=== PATIENT | female | born 1955 | race Caucasian/White ===

== ENCOUNTER → 2020-07-21 | Outpatient (CLI) | payer MEDICARE, OTHER | END | disposition home or self-care (01) | LOC: LABWHC1 12:33 | PROVIDERS: ATTEND Internal Medicine | DX: Z20.828 Contact with and (suspected) exposure to other viral communicable diseases (principal) | CPT/HCPCS: U0003; C9803 ==

== ENCOUNTER → 2023-10-07 | Outpatient (CLI) | payer MEDICARE ==
--- NOTE | 2023-10-08 06:46 | MR ---
EXAMINATION TYPE: MR knee LT wo con DATE OF EXAM: 10/07/2023 COMPARISON: Outside left knee x-ray September 28, 2023 HISTORY: Left knee pain and swelling x1.5 years TECHNIQUE: Multiplanar, multisequence images of the knee is performed without IV contrast. FINDINGS: MEDIAL MENISCUS: More globular increased signal medial meniscus begins in central body extending into the posterior horn. This does not definitively extend to articular surface LATERAL MENISCUS: Increased signal lateral meniscus seen best on image 19 is more in the central body having predominantly horizontal course with likely some linear extension to the inferior articular s urface on coronal image. CRUCIATE LIGAMENTS: The anterior and posterior cruciate ligaments are intact and unremarkable. COLLATERAL LIGAMENTS: The medial collateral ligament and lateral collateral ligament complex are inta ct and unremarkable. EXTENSOR MECHANISM: Visualized quadriceps and patellar tendons are intact. EFFUSION: Moderate size suprapatellar joint effusion. POPLITEAL CYST: Small to moderate-sized septated popliteal/mcintyre cyst. TRICOMPARTMENT SPACES: Moderate tricompartment joint space loss with mild tricompartment spurring. CARTILAGE: Some Cartilaginous loss medial tibiofemoral compartment. Some chondromalacia patella is pr esent. BONE MARROW SIGNAL: No focal abnormal marrow signal is appreciated. OTHER: No additional significant abnormality is appreciated. IMPRESSION: 1. At least significant intrasubstance tear medial meniscus involving central body extending into pos terior horn. 2. Intrasubstance tear suspected full-thickness tear lateral meniscus centered in the central body. 3. Fairly moderate tricompartment degenerative changes as detailed above. 4. Moderate-sized joint effusion. 5. Small to moderate sized septated popliteal cyst.
== END | disposition home or self-care (01) ==
LOC: RADMRIMAIN 14:41
PROVIDERS: ATTEND Orthopaedic Surgery
DX: M17.12 Unilateral primary osteoarthritis, left knee (principal); M25.462 Effusion, left knee; M71.22 Synovial cyst of popliteal space [Baker], left knee; M23.322 Other meniscus derangements, posterior horn of medial meniscus, left knee; M23.362 Other meniscus derangements, other lateral meniscus, left knee

== ENCOUNTER 2023-11-17 10:21 | Day surgery (SDC) | payer MEDICARE ==
[2023-11-15 15:34] VITALS: BMI 29.7
--- NOTE | 2023-11-16 18:28 | HP ---
HISTORY AND PHYSICAL DATE OF SURGERY: 11/17/2023. HISTORY OF PRESENT ILLNESS: Hermelinda Haney is a 68-year-old patient seen with progressive left knee pain. We discussed options. She elected to proceed with left knee arthroscopy. Consent was obtained. Medical clearance was provided by Dr. Smith. PAST MEDICAL HISTORY: Hypertension, hyperlipidemia. PAST SURGICAL HISTORY: Noncontributory. DAILY MEDICATIONS: 1. Gabapentin. 2. Lisinopril. 3. Metoprolol. 4. Simvastatin. 5. Tylenol. ALLERGIES: None. SOCIAL HISTORY: Smokes cigarettes. PHYSICAL EVALUATION OF LEFT KNEE: Range of motion is -1/2 to 130 degrees. Moderate effusion. Tenderness along the medial and lateral joint lines. Positive medial Haresh's. Positive lateral Haresh's. Ligaments stable. Hip rotation without pain. Distal neurovascular exam is intact. IMAGING STUDIES: Left knee radiographs revealed moderate osteoarthritis. MRI of left knee revealed medial and lateral meniscal tears, popliteal system, moderate osteoarthritis. IMPRESSION: 1. Internal derangement of left knee with medial and lateral meniscal tears. 2. Left knee osteoarthritis. 3. Hypertension. 4. Hyperlipidemia. PLAN: Left knee arthroscopy with partial medial/lateral meniscectomy and debridement. MMODL / IJN: [id number] /
[~2023-11-17 10:21] MED LIST: HYDROmorphone 0.5 MG/0.5 ML SYRINGE IVP PRN; LACTATED RINGERS 1,000 ML IV SCH
[2023-11-17] MEDS: LACTATED RINGERS 1,000 ML IV ONE (10:48)
[2023-11-17] MEDS: DEXAMETHASONE SOD PHOSPHATE 4 MG/ML 1 ML VIAL IV ONE (11:07)
[2023-11-17] MEDS: ONDANSETRON 4 MG/2 ML VIAL IVP ONE (11:07)
[2023-11-17] MEDS ORDERED: PROPOFOL 10 MG/ML 20 ML VIAL IV ONE (11:24)
[2023-11-17] MEDS ORDERED: MIDAZOLAM 2 MG/2 ML VIAL ONE (11:24)
[2023-11-17] MEDS ORDERED: fentaNYL (PF) 50 MCG/ML 2 ML AMP ONE (11:24)
[2023-11-17] MEDS ORDERED: LIDOCAINE 1% INJ 10MG/ML (20 ML MDV) ONE (11:24)
[2023-11-17] MEDS: BUPIVACAINE (PF) 0.25% 30 ML VIAL SQ ONE (11:28)
[2023-11-17] MEDS: ceFAZolin 1 GM in DEXTROSE/WATER 1 50ML.BAG IVPB PRN (11:30)
[2023-11-17] MEDS: SODIUM CHLORIDE 0.9% 50 ML with ceFAZolin 1,000 MG IV ONE (11:30)
--- NOTE | 2023-11-17 12:23 | P.OP ---
Date of Procedure: 11/17/23 Preoperative Diagnosis: Internal derangement left knee Postoperative Diagnosis: 1. Tear medial and lateral meniscus left knee 2. Grade IV chondromalacia medial femoral condyle left knee 3. Reactive synovitis medial, lateral and suprapatellar compartments left knee Procedure(s) Performed: 1. Arthroscopic partial medial and lateral meniscectomy left knee 2. Arthroscopic microfracture medial femoral condyle left knee 3. Arthroscopic partial synovectomy medial, lateral and suprapatellar compartments left knee 4. Arthroscopic chondroplasty medial femoral condyle left knee Anesthesia: REBECCAA, local Surgeon: Rodolfo Tellez Estimated Blood Loss (ml): 7 Pathology: none sent Condition: stable Disposition: PACU Indications for Procedure: 68-year-old patient seen with progressive left knee pain. After treatment options were discussed, she elected to proceed with arthroscopy. Operative Findings: See description of procedure Description of Procedure: Patient was taken to the operative suite. Patient underwent a general anesthetic by the department of anesthesia. Patient was given preoperative antibiotics. The left lower extremity was placed in a well-padded arthroscopic leg del castillo. The left leg was prepped and draped in the normal sterile orthopedic fashion. A lateral parapatellar and suprapatellar incision was made. Trochars were inserted. Arthroscopy was initiated. Suprapatellar pouch revealed diffuse thick reactive synovitis. The patellofemoral joint appeared to articulate congruently. There was grade I chondromalacia of the patellofemoral joint without significant tears. The scope was guided into the medial gutter. No loose bodies or plica were identified. The scope was then guided into the medial compartment. A medial parapatellar incision was made. Trocar inserted followed by probe. There was a complex tear involving the posterior horn and mid bodies of the medial meniscus. There were grade III/IV chondromalacia changes involving the medial femoral condyle with osteochondral flap tears. There was grade II/III chondromalacia of the medial tibial plateau with no tears. There was thick reactive synovitis anteriorly. I performed a partial medial meniscectomy getting down to stable meniscal tissue. I performed a chondroplasty of the medial femoral condyle getting down to stable osteochondral tissue. I performed a partial synovectomy decompressing the reactive synovitis anteriorly. I did note an area of grade IV chondromalacia/exposed bone involving the posterior aspect of the medial femoral condyle. I introduced a microfracture awl and I performed a microfracture to the area of exposed bone penetrating the bone with resultant bleeding at the microfracture site. The residual meniscus was probed and was found to be stable. The residual osteochondral surface was stable. There was good decompression of the synovitis. Scope and probe were then guided into the intercondylar notch. Cruciates were identified, probed and found to be stable. The scope and probe were then guided into lateral compartment. There was a radial tear mid body lateral meniscus. There were grade I chondromalacia changes involving the lateral compartment. There was thick reactive synovitis anteriorly. I performed a partial lateral meniscectomy getting down to stable meniscal tissue. I performed a partial synovectomy decompressing the reactive synovitis. The residual meniscus was stable. There was good decompression of the synovitis. The scope was in guided back into the suprapatellar compartment. I introduced a motorized shaver into the suprapatellar compartment. I debrided some piecemeal fragments of meniscus that I encountered. I performed a partial synovectomy. The shaver was now removed. There was good decompression of the synovitis. I now took 1 more look around the entire knee, no residual debris. Instruments were now removed from the joint. The joint was infiltrated with .25% Marcaine. Steri-Strips were applied to the portal sites. Sterile dressings were applied. The patient was placed into a BROCK hose. No tourniquet was utilized. The patient was awakened, transferred to a bed and taken to recovery stable satisfactory condition.
[2023-11-17 12:52] VITALS: RESP 16; TEMP 96.8
[2023-11-17 13:26] VITALS: BP 119/74; PULSE 84
== END 2023-11-17 13:53 | disposition home or self-care (01) ==
LOC: OR 10:21
PROVIDERS: ATTEND Orthopaedic Surgery
DX: S83.282A Other tear of lateral meniscus, current injury, left knee, initial encounter (principal); S83.242A Other tear of medial meniscus, current injury, left knee, initial encounter; M17.12 Unilateral primary osteoarthritis, left knee; I10 Essential (primary) hypertension; E78.5 Hyperlipidemia, unspecified; F17.210 Nicotine dependence, cigarettes, uncomplicated; Z79.1 Long term (current) use of non-steroidal anti-inflammatories (NSAID); Z79.899 Other long term (current) drug therapy; X58.XXXA Exposure to other specified factors, initial encounter
CPT/HCPCS: 29880; 29879; J2250; J1100; J2405; J0690 ×2; J2001; J3010; J2704; J0665

== ENCOUNTER → 2024-05-18 | Outpatient (CLI) | payer MEDICARE ==
--- NOTE | 2024-05-18 15:16 | CT ---
EXAMINATION TYPE: CT foot RT wo con CT DLP: 208 mGycm, Automated exposure control for dose reduction was used. DATE OF EXAM: 05/18/2024 2:41 PM COMPARISON: None CLINICAL INDICATION: Female, 69 years old with history of M79.671 PAIN RT FOOT S92.334K, S92.324K, S9 2.324K; [facility], f/u fx/not healing TECHNIQUE: Axial images were obtained of the CT foot RT wo con, Additional coronal and sagittal refor matted images and soft tissue and bone window were obtained for review. 3-D reconstruction was create d on a separate workstation. Contrast used: mL of , (None if empty) Oral contrast used: (None if empty) FINDINGS: Fracture lines are seen through the second, third, fourth metatarsals near the base. No def initive intra-articular extension. There is incomplete osseous fusion of these fractures. Multifocal degeneration changes throughout the rest of the joints with mild joint space and osteophyt e formation. Calcaneal plantar spur and calcaneal Achilles enthesophyte formation are present. IMPRESSION: Fractures through the second, third and fourth metatarsal bases. There is incomplete osseous fusion. No intra-articular extension. Mild multifocal old osteoporosis.
== END | disposition home or self-care (01) ==
LOC: RADCTMAIN 14:02
PROVIDERS: ATTEND Podiatrist
DX: S92.334K Nondisplaced fracture of third metatarsal bone, right foot, subsequent encounter for fracture with nonunion (principal); S92.324K Nondisplaced fracture of second metatarsal bone, right foot, subsequent encounter for fracture with nonunion; M79.671 Pain in right foot

== ENCOUNTER → 2024-07-24 | Outpatient (CLI) | payer MEDICARE ==
--- NOTE | 2024-07-28 17:15 | MM ---
Reason for Exam: Screening (asymptomatic). Last mammogram was performed 1 year(s) and 4 month(s) ago. Patient History: Menarche at age 14. First Full-Term at age 22. Left ovary removed at age 28. Right ovary removed at age 28. Hysterectomy at age 28. Postmenopausal. Patient used Estrogen for 10 years. Maternal unspecified (nephew) had breast cancer, age 31. Risk Values: Sabi 5 year model risk: 1.4%. NCI Lifetime model risk: 4.3%. Prior Study Comparison: 04/29/2010 Bilateral Diagnostic Mammogram, [facility]. 06/01/2011 Bilateral Screening Mammogram, [facility]. 07/21/2012 Bilateral Screening Mammogram, [facility]. 01/28/2022 Left Diagnostic Mammogram, [facility]. 03/25/2023 Bilateral Screening Mammogram, [facility]. Tissue Density: The breasts are heterogeneously dense, which may obscure small masses. Findings: Analyzed By CAD. The pattern is symmetrical. Multiple benign punctate and round calcifications are present bilaterally. No suspicious interval change. No suspicious groups of microcalcifications, spiculated or lobular masses, architectural distortion or other secondary signs of malignancy are mammographically apparent. Overall Assessment: Benign, BI-RAD 2 Management: Screening Mammogram of both breasts in 1 year. A negative mammogram report should not preclude additional follow up of suspicious palpable abnormalities. Patient should continue monthly self breast exam. A clinical breast exam by your physician is recommended on an annual basis and results should be correlated with mammographic findings. Note on Sabi scores and lifetime risk: 1. A Sabi score greater than 3% is considered moderate risk. If this is the case, consider specialist referral to assess eligibility for a risk reducing agent. 2. If overall lifetime risk for the development of breast cancer is 20% or higher, the patient may qualify for future screening with alternating mammogram and breast MRI. [facility], , 07/28/2024 5:12 PM. Electronically signed and approved by: Reno Marcial D.O. Radiologis
== END | disposition home or self-care (01) ==
LOC: RADMAMWWP 14:12
PROVIDERS: ATTEND Internal Medicine
DX: Z12.31 Encounter for screening mammogram for malignant neoplasm of breast (principal); R92.333 Mammographic heterogeneous density, bilateral breasts; Z78.0 Asymptomatic menopausal state
CPT/HCPCS: 77063; 77067

== ENCOUNTER → 2024-08-16 | Outpatient (CLI) | payer MEDICARE ==
--- NOTE | 2024-08-16 15:18 | XR ---
EXAMINATION TYPE: XR chest 2V DATE OF EXAM: 08/16/2024 3:13 PM COMPARISON: Chest radiographs from 03/24/2012 TECHNIQUE: XR chest 2V Frontal and lateral views of the chest. CLINICAL INDICATION:Female, 69 years old with history of J44.9, R05.9; FINDINGS: Lungs/Pleura: There is no evidence of pleural effusion, focal consolidation, or pneumothorax. Linear scarring or atelectasis within the left lung base. Pulmonary vascularity: Unremarkable. Heart/mediastinum: Cardiomediastinal silhouette is unremarkable. Atherosclerotic calcifications are seen in the aorta. Musculoskeletal: Multiple level degenerative disc disease changes seen throughout the spine. Benign-a ppearing sclerotic focus within the left humeral head. IMPRESSION: No acute cardiopulmonary disease/process. [facility], , 08/16/2024 3:16 PM
== END | disposition home or self-care (01) ==
LOC: RADXRMAIN 15:00
PROVIDERS: ATTEND Internal Medicine
DX: J44.9 Chronic obstructive pulmonary disease, unspecified (principal); R05.9 Cough, unspecified
CPT/HCPCS: 71046

== ENCOUNTER → 2024-11-08 | Outpatient (CLI) | payer MEDICARE ==
--- NOTE | 2024-11-08 16:28 | CTL ---
EXAMINATION TYPE: CT Low Dose Lung DATE OF EXAM ORDERED: 11/08/2024 COMPARISON: None CLINICAL INDICATION: Female, 69 years old with history of F17.210, Z12.2; [facility], Lung screening for quincy otine dependence of 1ppd x20 years., Lung cancer screening, History of Smoking/tobacco use. TECHNIQUE: Low dose computed tomography scan was performed through the chest at 1 mm thick sections a nd reconstructed images in multiple planes at 1 mm and [address] DLP: 98.[address] CTDI: 2.6 mGy Automated exposure control for dose reduction was used. CT DIAGNOSTIC QUALITY: Satisfactory Findings: There are mild emphysematous changes. There are no suspicious lung masses or nodules. There are mild subpleural parenchymal changes in the right middle lobe medially and within the lingul a. There is no lung consolidation. There is no pleural effusion or pneumothorax. The great vessels and heart are normal in size. There is no mediastinal, hilar or axillary adenopathy. Limited scanning through the upper abdomen reveals no gross abnormality. There are no focal osseous lesions. IMPRESSION: 1. Lung RADS category 1 negative. Continue routine screening at yearly intervals. 2. No acute cardiopulmonary disease. 3. Mild emphysematous changes. [facility], , 11/08/2024 4:25 PM
== END | disposition home or self-care (01) ==
LOC: RADCTMAIN 15:05
PROVIDERS: ATTEND Internal Medicine
DX: Z12.2 Encounter for screening for malignant neoplasm of respiratory organs (principal); F17.210 Nicotine dependence, cigarettes, uncomplicated; J43.9 Emphysema, unspecified
CPT/HCPCS: 71271

== ENCOUNTER → 2024-11-27 | Outpatient (CLI) | payer MEDICARE ==
--- NOTE | 2024-11-27 15:23 | MR ---
EXAMINATION TYPE: MR knee RT wo con DATE OF EXAM: 11/27/2024 1:40 PM COMPARISON: 10/07/2023 contralateral knee. CLINICAL INDICATION: Female, 69 years old with history of M25.561 PAIN IN RIGHT KNEE; PH[facility], Rt knee pa in, locking and swelling TECHNIQUE: Multi planar, multi sequence imaging was performed of the knee including: Triplane proton density fat-saturated images and T1-weighted imaging. No Gadolinium was given. IV Contrast: mL (none if empty) FINDINGS: Medial meniscus: Degenerative body with free edge fraying possible undersurface horizontal tear o f the posterior horn and body Medial femorotibial cartilage: Intact Medial collateral ligament: Intact Lateral meniscus: Vertical tear to the anterior horn with degenerative body with displacement int o the medial gutter. Mild bony edema on the tibial plateau. Lateral femorotibial cartilage: Diffuse thinning of the cartilage with full-thickness fissuring a nd some subchondral bony edema in the tibial plateau. Lateral collateral ligament complex: Intact Patellofemoral alignment: Normal Patellofemoral cartilage: Intact Extensor mechanism: Intact. Joint/bursal fluid: None. Muscles/tendons: The patellar tendon, quadriceps tendon, IT band, pes anserinus tendons, semimembrano alex tendon, popliteus tendon, and biceps femoris tendon are all within normal limits. Bone marrow: Increased bone marrow signal within the posterior lateral femoral condyle on the rig ht.r Anterior cruciate ligament: Intact. Posterior cruciate ligament: Intact. Soft tissues: No popliteal fossa Garner's cyst 54 x 21 mm IMPRESSION: 1. Medial meniscus body and posterior horn undersurface horizontal tear. 2. Lateral meniscus anterior horn vertical tear with extension into the body with displaced lateral meniscal body into the gutter. 3. Popliteal fossa Garner's cyst. 4. Moderate degeneration changes with near complete cartilage loss of the lateral knee. [facility], , 11/27/2024 3:21 PM
== END | disposition home or self-care (01) ==
LOC: RADMRIMAIN 13:03
PROVIDERS: ATTEND Orthopaedic Surgery
DX: S83.241A Other tear of medial meniscus, current injury, right knee, initial encounter (principal); M17.11 Unilateral primary osteoarthritis, right knee; M71.21 Synovial cyst of popliteal space [Baker], right knee

== ENCOUNTER → 2024-12-20 | Outpatient (CLI) | payer MEDICARE ==
[2024-12-20 19:01] LABS: Basophils # (A) 0.05 X 10*3/uL (0.00-0.10); Basophils % (A) 0.6 %; Eosinophils # (A) 0.07 X 10*3/uL (0.04-0.35); Eosinophils % (A) 0.8 %; HCT 38.5 % (37.2-46.3); HGB 13.5 g/dL (12.0-15.0); Lymphocytes % (A) 29.8 %; MCH 32.8 pg (27.0-32.0); MCHC 35.1 g/dL (32.0-37.0); MCV 93.7 FL (80.0-97.0); Mean Platelet Volume 9.3 FL (9.5-12.2); Monocytes # (A) 0.89 X 10*3/uL (0.20-1.00); Monocytes % (A) 9.8 %; NRBC Per 100 WBC 0 X 10*3/uL (0.00-0.01); Neutrophils # (A) 5.34 X 10*3/uL (1.80-7.70); Neutrophils % (A) 58.8 %; Platelet Count 365 X 10*3/uL (140-440); RBC 4.11 X 10*6/uL (4.10-5.20); RDW 12.3 % (11.5-14.5); WBC 9.07 X 10*3/uL (4.50-10.00)
[2024-12-20 19:20] LABS: Anion Gap 15.2 mmol/L (4.00-12.00); Carbon Dioxide 24.8 mmol/L (21.6-31.8); Potassium 3.7 mmol/L (3.5-5.5)
== END | disposition home or self-care (01) ==
LOC: LABWHC1 13:58
PROVIDERS: ATTEND Internal Medicine
DX: Z01.818 Encounter for other preprocedural examination (principal); M23.91 Unspecified internal derangement of right knee
CPT/HCPCS: 36415; 80051; 85025; 93005

== ENCOUNTER 2024-12-27 10:10 | Day surgery (SDC) | payer MEDICARE ==
--- NOTE | 2024-12-26 21:39 | HP ---
HISTORY AND PHYSICAL DATE OF SURGERY: 12/27/2024. HISTORY OF PRESENT ILLNESS: Hermelinda Haney is a 69-year-old patient seen with progressive right knee pain. After having treatment options discussed with her, she elected to proceed with right knee arthroscopy. Consent was obtained. PAST MEDICAL HISTORY: Hypertension, hyperlipidemia. PAST SURGICAL HISTORY: Noncontributory. DAILY MEDICATIONS: 1. Lisinopril. 2. Metoprolol. 3. Simvastatin. 4. Tylenol. ALLERGIES: None. SOCIAL HISTORY: She smokes cigarettes. PHYSICAL EVALUATION OF THE RIGHT KNEE: Range of motion is -3/4 to 110 degrees. Tenderness along the medial and lateral joint lines. Positive medial Haresh's. Positive lateral Haresh's. Mild effusion. Ligaments stable. Hip rotation without pain. Distal neurovascular exam intact. IMAGING STUDIES: Right knee radiographs revealed osteoarthritic changes. MRI of right knee revealed medial and lateral meniscal tears, moderate osteoarthritis, large Garner cyst. IMPRESSION: 1. Internal derangement of right knee with medial and lateral meniscal tears. 2. Right knee osteoarthritis. 3. Hypertension. 4. Hyperlipidemia. PLAN: Right knee arthroscopy with partial medial/lateral meniscectomy and debridement. MMODL / IJN: [id number] /
[~2024-12-27 10:10] MED LIST changes: -LACTATED RINGERS 1,000 ML IV SCH
[2024-12-27] MEDS: IV FLUID CONTINUATION 1,000 ML IV ONE (10:49)
[2024-12-27] MEDS: LACTATED RINGERS 1,000 ML IV SCH (10:53)
[2024-12-27] MEDS: ONDANSETRON 4 MG/2 ML VIAL IVP ONE (10:53)
[2024-12-27] MEDS: DEXAMETHASONE SOD PHOSPHATE 4 MG/ML 1 ML VIAL IV ONE (10:54)
[2024-12-27] MEDS ORDERED: KETOROLAC 15 MG/ML 1 ML VIAL ONE (11:41)
[2024-12-27] MEDS ORDERED: SUCCINYLCHOLINE CHLORIDE 200 MG/10 ML VIAL IV ONE (11:41)
[2024-12-27] MEDS ORDERED: PROPOFOL 10 MG/ML 20 ML VIAL IV ONE (11:41)
[2024-12-27] MEDS ORDERED: LIDOCAINE 1% INJ 10MG/ML (20 ML MDV) ONE (11:41)
[2024-12-27] MEDS ORDERED: fentaNYL (PF) 50 MCG/ML 2 ML AMP ONE (11:41)
[2024-12-27] MEDS ORDERED: LIDOCAINE 4% LTA KIT (4 ML) TOPICAL ONE (11:41)
[2024-12-27] MEDS ORDERED: MIDAZOLAM 2 MG/2 ML VIAL ONE (11:41)
[2024-12-27] MEDS: ceFAZolin 2 GM in DEXTROSE 5% IN WATER 50 ML IVPB PRN (11:44)
[2024-12-27] MEDS: BUPIVACAINE (PF) 0.25% 30 ML VIAL MISCELLANE ONE ×3 (11:51→12:18)
--- NOTE | 2024-12-27 12:39 | P.OP ---
Date of Procedure: 12/27/24 Preoperative Diagnosis: Internal derangement right knee Postoperative Diagnosis: 1. Tear medial and lateral meniscus right knee 2. Grade IV chondromalacia lateral femoral condyle right knee 3. Reactive synovitis medial, lateral and suprapatellar compartments right knee 4. Grade IV chondromalacia lateral tibial plateau right knee Procedure(s) Performed: 1. Arthroscopic partial medial and lateral meniscectomy right knee 2. Arthroscopic microfracture lateral femoral condyle right knee 3. Arthroscopic partial synovectomy medial, lateral and suprapatellar compartments right knee Anesthesia: REBECCAA, local Surgeon: Rodolfo Tellez Estimated Blood Loss (ml): 8 Pathology: none sent Condition: stable Disposition: PACU Indications for Procedure: 69-year-old patient seen with progressive right knee pain. After having treatment options discussed, she elected to proceed with arthroscopy. Operative Findings: See description of procedure Description of Procedure: Patient was taken to the operative suite. Patient underwent a general anesthetic by the department of anesthesia. Patient was given preoperative antibiotics. The right lower extremity was placed in a well-padded arthroscopic leg del castillo. The right leg was prepped and draped in the normal sterile orthopedic fashion. A lateral parapatellar and suprapatellar incision was made. Trochars were inserted. Arthroscopy was initiated. Suprapatellar pouch rev ealed diffuse thick reactive synovitis. The patellofemoral joint appeared to articulate congruently. There was grade I chondromalacia of the patellofemoral joint without significant osteochondral tears being present. The scope was guided into the medial gutter. No loose bodies or plica were identified. The scope was then guided into the medial compartment. A medial parapatellar incision was made. Trocar inserted followed by probe. There was a complex tear involving the posterior horn of the medial meniscus. There were grade I/II chondromalacia changes of the medial compartment without tears. There are some thick reactive synovitis anteriorly. I performed a partial medial meniscectomy getting down to stable meniscal tissue. I performed a partial synovectomy decompressing that reactive synovitis. The residual meniscus was probed and was found to be stable. There was good decompression of the synovitis. Scope and probe were then guided into the intercondylar notch. Cruciates were identified, probed and found to be stable. The scope and probe were then guided into lateral compartment. There was a complex tear involving the mid bodies and posterior horn lateral meniscus. There were grade III/IV chondromalacia changes lateral femoral condyle with osteochondral flap tears and areas of grade IV chondromalacia the tibial plateau with exposed bone. There was thick reactive synovitis anteriorly. I performed a partial lateral meniscectomy getting down to stable meniscal tissue. I performed a chondroplasty of the lateral femoral condyle getting down to stable osteochondral tissue followed by a partial synovectomy decompressing the reactive synovitis. I did note an area of exposed bone involving lateral femoral condyle weightbearing surface measuring just unde r centimeter. I introduced a microfracture awl and I performed a microfracture to that area penetrating the bone with resultant bleeding at the microfracture site. The residual meniscus was probed and was found to be stable. The residual osteochondral surface was stable. There was good decompression of the synovitis. The scope was in guided back into the suprapatellar compartment. I introduced a motorized shaver into the suprapatellar compartment. I debrided some piecemeal fragments of meniscus that I encountered. I performed a partial synovectomy. The shaver was removed. There was good decompression of the synovitis. I now took 1 more look around the entire knee, no residual debris. Instruments were now removed from the joint. The joint was infiltrated with .25% Marcaine. Steri-Strips were applied to the portal sites. Sterile dressings were applied. The patient was placed into a BROCK hose. No tourniquet was utilized. The patient was awakened, transferred to a bed and taken to recovery stable satisfactory condition.
[2024-12-27 12:42] VITALS: TEMP 97.1
[2024-12-27 12:49] VITALS: PULSE 78
[2024-12-27 13:39] VITALS: BP 124/77; RESP 18
== END 2024-12-27 13:55 | disposition home or self-care (01) ==
LOC: OR 10:10
PROVIDERS: ATTEND Orthopaedic Surgery
DX: S83.231A Complex tear of medial meniscus, current injury, right knee, initial encounter (principal); S83.271A Complex tear of lateral meniscus, current injury, right knee, initial encounter; M17.11 Unilateral primary osteoarthritis, right knee; M94.261 Chondromalacia, right knee; M65.861 Other synovitis and tenosynovitis, right lower leg; M71.21 Synovial cyst of popliteal space [Baker], right knee; I10 Essential (primary) hypertension; E78.5 Hyperlipidemia, unspecified; K21.9 Gastro-esophageal reflux disease without esophagitis; F32.A Depression, unspecified; F17.210 Nicotine dependence, cigarettes, uncomplicated; Z79.899 Other long term (current) drug therapy; X58.XXXA Exposure to other specified factors, initial encounter
CPT/HCPCS: 29880; 29879; 29876; J2250; J0330; J1100; J0690; J2405; J2003; J3010; J1885; J2704; J0665

== ENCOUNTER 2025-02-20 07:57 | Day surgery (SDC) | payer MEDICARE ==
[2025-02-19 13:08] VITALS: BMI 30.9
[~2025-02-20 07:57] MED LIST changes: -HYDROmorphone 0.5 MG/0.5 ML SYRINGE IVP PRN; +LIDOCAINE 1% (10MG/ML) FOR IV START INTRADERMA PRN
[2025-02-20] MEDS: IV FLUID CONTINUATION 1,000 ML IV ONE (08:21)
[2025-02-20 08:32] VITALS: TEMP 97.6
[2025-02-20] MEDS: LACTATED RINGERS 1,000 ML IV SCH (08:33)
[2025-02-20] MEDS ORDERED: PROPOFOL 10 MG/ML 20 ML VIAL IV ONE (08:57)
--- NOTE | 2025-02-20 09:19 | P.PCN ---
Date of Procedure: 02/20/25 Procedure(s) Performed: BRIEF HISTORY: Patient is a 69-year-old pleasant white female scheduled for an elective colonoscopy as a part of screening for colon cancer and positive Cologuard. PROCEDURE PERFORMED: Colonoscopy with snare polypectomy. PREOPERATIVE DIAGNOSIS: Screening for colon cancer positive Cologuard. IV sedation per Anesthesia. PROCEDURE: After informed consent was obtained, the patient, was brought into the endoscopy unit. IV sedation was administered by Anesthesia under continuous monitoring. Digital rectal examination was normal. Initially the Olympus CF-160 flexible video colonoscope was then inserted in the rectum, gradually advanced into the cecum without any difficulty. Careful examination was performed as the scope was gradually being withdrawn. Ileocecal valve and the appendiceal orifice were visualized and appeared normal. Prep was excellent. Mucosa of the cecum 6 mm polyp that was removed by cold snare polypectomy. Rest of the, ascending colon, transverse colon, appeared normal. In the transverse colon there was finding admitted x 2 polyps removed by cold snare polypectomy. In the descending colon there was a 4 mm polyp removed by cold snare polypectomy. Scattered sigmoid diverticulosis seen. Rest of the sigmoid colon, and rectum appeared normal. Retroflexion was performed in the rectum and no lesions were seen. The patient tolerated the procedure well. IMPRESSION: 6 mm cecal polyp status post cold snare polypectomy 5 mm x 2 desscending colon polyp status post cold snare polypectomy scattered diverticulosis 5 mm transverse colon polyp status post cold snare polypectomy RECOMMENDATIONS: Findings of this examination were discussed with the patient as well as her family. She was advised to follow-up with the biopsy results. If the biopsy reveals adenoma she can have repeat colonoscopy in 3 years..
[2025-02-20 09:47] VITALS: BP 115/75; PULSE 76; RESP 16
== END 2025-02-20 09:51 | disposition home or self-care (01) ==
LOC: ORWHC2ENDO 07:57
PROVIDERS: ATTEND Internal Medicine Gastroenterology
DX: Z12.11 Encounter for screening for malignant neoplasm of colon (principal); D12.0 Benign neoplasm of cecum; D12.3 Benign neoplasm of transverse colon; K63.5 Polyp of colon; K57.30 Diverticulosis of large intestine without perforation or abscess without bleeding; R19.5 Other fecal abnormalities; I10 Essential (primary) hypertension; E78.5 Hyperlipidemia, unspecified; F41.9 Anxiety disorder, unspecified; K21.9 Gastro-esophageal reflux disease without esophagitis; F17.210 Nicotine dependence, cigarettes, uncomplicated; Z79.899 Other long term (current) drug therapy; Z98.890 Other specified postprocedural states
CPT/HCPCS: 45385; J2704; 88305

== ENCOUNTER 2025-03-14 16:02 | Emergency (ER) | payer MEDICARE ==
[2025-03-14 16:07] VITALS: TEMP 97.4
--- NOTE | 2025-03-14 16:47 | ED ---
Dizziness HPI - General Chief Complaint: Dizziness Stated Complaint: Dizziness Time Seen by Provider: 03/14/25 16:19 Source: patient, EMS, RN notes reviewed Mode of arrival: EMS Limitations: no limitations - History of Present Illness MD Complaint: dizziness, lightheadedness Onset/Timin -: week(s) Timing: intermittent Description: sense of movement, lightheadedness History of Same: Yes (Vertigo in the past) History of Trauma: No Improves With: remaining still Worsens With: movement, position, exertion Associated Symptoms: denies other symptoms - Related Data Home Medications Medication Instructions Recorded Confirmed Acetaminophen-Codeine 300-30mg 1 tab PO BID PRN 11/15/23 02/20/25 [Tylenol w/codeine #3] Cyclobenzaprine [Flexeril] 10 mg PO HS 11/15/23 02/20/25 Ezetimibe [Zetia] 10 mg PO DAILY 11/15/23 02/20/25 Gabapentin 600 mg PO BID 11/15/23 02/20/25 Lisinopril-Hctz 20-12.5 mg 1 tab PO DAILY 11/15/23 02/20/25 [Zestoretic 20-12.5] Metoprolol Tartrate [Lopressor] 100 mg PO BID 11/15/23 02/20/25 Omeprazole 20 mg PO QAM 11/15/23 02/20/25 Rosuvastatin Calcium 20 mg PO DAILY 11/15/23 02/20/25 Sertraline [Zoloft] 50 mg PO QAM 11/15/23 02/20/25 buPROPion HCL [buPROPion HCL Xl] 150 mg PO QAM 11/15/23 02/20/25 clonazePAM [Clonazepam] 0.5 mg PO HS 11/15/23 02/20/25 icosapent ethyL [Vascepa] 1 gm PO BID 11/15/23 02/20/25 Previous Rx's Medication Instructions Recorded Meclizine [Antivert] 25 mg PO Q8H PRN #15 tab 03/14/25 Allergies Allergy/AdvReac Type Severity Reaction Status Date / Time No Known Allergies Allergy Verified 03/14/25 16:07 Review of Systems ROS Statement: Those systems with pertinent positive or pertinent negative responses have been documented in the HPI. ROS Other: All systems not noted in ROS Statement are negative. Past Medical History Past Medical History: GERD/Reflux, Hyperlipidemia, Hypertension, Osteoarthritis (OA) Additional Past Medical History / Comment(s): positive cologuard History of Any Multi-Drug Resistant Organisms: None Reported Past Surgical History: Section, Hysterectomy Additional Past Surgical History / Comment(s): COLONOSCOPY,rt knee arthroscopy Past Anesthesia/Blood Transfusion Reactions: No Reported Reaction Additional Past Anesthesia/Blood Transfusion Reaction / Comment(s): no hx blood transfusion Past Psychological History: Anxiety, Depression Smoking Status: Current every day smoker - Past Family History Mother Family Medical History: Cancer Brother(s) Family Medical History: Cancer General Exam General appearance: alert, in no apparent distress Head exam: Present: atraumatic, normocephalic, normal inspection Eye exam: Present: normal appearance, PERRL, EOMI, other (Hints exams unremarkable, negative nystagmus/strabismus). Absent: scleral icterus, conjunctival injection, nystagmus, periorbital swelling Pupils: Present: normal accommodation ENT exam: Present: normal exam, mucous membranes dry, TM's normal bilaterally Neck exam: Present: normal inspection. Absent: tenderness, meningismus, lymphadenopathy Respiratory exam: Present: normal lung sounds bilaterally. Absent: respiratory distress, wheezes, rales, rhonchi, stridor, accessory muscle use, decreased breath sounds, prolonged expiratory Cardiovascular Exam: Present: regular rate, normal rhythm, normal heart sounds. Absent: systolic murmur, diastolic murmur, rubs, gallop, clicks GI/Abdominal exam: Present: soft, normal bowel sounds. Absent: distended, tenderness, guarding, rebound, rigid Extremities exam: Present: normal inspection, full ROM, normal capillary refill. Absent: tenderness, pedal edema, joint swelling, calf tenderness Back exam: Present: normal inspection Neurological exam: Present: alert, oriented X3, CN II-XII intact, other (Vowinckel stroke and cerebellar tests normal) Psychiatric exam: Present: normal affect, normal mood Skin exam: Present: warm, dry, intact, normal color. Absent: rash Course Vital Signs 03/14/25 03/14/25 03/14/25 16:03 17:01 18:50 Temperature 97.4 F L Pulse Rate 83 81 81 Respiratory 18 16 18 Rate Blood Pressure 160/79 136/82 144/67 O2 Sat by Pulse 97 98 97 Oximetry 03/14/25 20:00 Temperature Pulse Rate 84 Respiratory 20 Rate Blood Pressure 136/57 O2 Sat by Pulse 97 Oximetry Medical Decision Making - Medical Decision Making Was pt. sent in by a medical professional or institution ([facility] Webster, MORTGAGE LOAN PROCESSOR, urgent care, hospital, or [facility]...) When possible be specific @ -[No] Did you speak to anyone other than the patient for history (EMS, parent, family, police, friend...)? What history was obtained from this source @ -[No] Did you review nursing and triage notes (agree or disagree)? Why? @ -[I reviewed and agree with nursing and triage notes] Were old charts reviewed (outside hosp., previous admission, EMS record, old EKG, old radiological studies, urgent care reports/EKG's, [facility] records)? Report findings @ -[No old charts were reviewed] Differential Diagnosis (chest pain, altered mental status, abdominal pain women, abdominal pain men, vaginal bleeding, weakness, fever, dyspnea, syncope, headache, dizziness, GI bleed, back pain, seizure, CVA, palpatations, mental health, musculoskeletal)? @ -Differential Dizziness: Benign paroxysmal positional Vertigo, Meniere's disease, otitis media, acoustic neuroma, vertebrobasilar insufficiency, cerebellar stroke, encephalitis, hypovolemic, arrhythmia, coronary artery syndrome, anemia, this is not meant to be an all-inclusive list EKG interpreted by me (3pts min.). @ -Sinus rhythm without ST deviation or T wave inversion. Ventricular rate 83 bpm, HI 146 ms, QRS 85 ms, QTc 427 ms. X-rays interpreted by me (1pt min.). @ -[None done] CT interpreted by me (1pt min.). @ -[None done] U/S interpreted by me (1pt. min.). @ -[None done] What testing was considered but not performed or refused? (CT, X-rays, U/S, labs)? Why? @ -[None] What meds were considered but not given or refused? Why? @ -[None] Did you discuss the management of the patient with other professionals (professionals i.e. [employer] Webster, MORTGAGE LOAN PROCESSOR, lab, RT, psych nurse, school social worker, guard sergeant, teacher, unclaimed property officer, home health care case manager)? Give summary @ -[No] Was smoking cessation discussed for >3mins.? @ -[No] Was critical care preformed (if so, how long)? @ -[No] Were there social determinants of health that impacted care today? How? (Homel essness, low income, unemployed, alcoholism, drug addiction, transportation, low edu. Level, literacy, decrease access to med. care, [facility], rehab)? @ -[No] Was there de-escalation of care discussed even if they declined (Discuss DNR or withdrawal of care, Hospice)? DNR status @ -[No] What co-morbidities impacted this encounter? (DM, HTN, Smoking, COPD, CAD, Cancer, CVA, ARF, Chemo, Hep., AIDS, mental health diagnosis, sleep apnea, morbid obesity)? @ -[None] Was patient admitted / discharged? Hospital course, mention meds given and route, prescriptions, significant lab abnormalities, going to OR and other pertinent info. @ -[hospital course] Undiagnosed new problem with uncertain prognosis? @ -[No] Drug Therapy requiring intensive monitoring for toxicity (Heparin, Nitro, Insulin, Cardizem)? @ -[No] Were any procedures done? @ -[No] Diagnosis/symptom? @ -[default] Acute, or Chronic, or Acute on Chronic? @ -Acute Uncomplicated (without systemic symptoms) or Complicated (systemic symptoms)? @ -Complicated Side effects of treatment? @ -[No] Exacerbation, Progression, or Severe Exacerbation? @ -[No] Poses a threat to life or bodily function? How? (Chest pain, USA, [place], pneumonia, PE, COPD, DKA, ARF, appy, cholecystitis, CVA, Diverticulitis, Homicidal, Suicidal, threat to staff... and all critical care pts) @ -[No] - Lab Data Result diagrams: 03/14/25 16:59 03/14/25 18:33 Lab Results 03/14/25 03/14/25 03/14/25 Range/Units 16:59 16:59 18:10 WBC 9.14 (4.50-10.00) 10*3/uL RBC 4.12 (4.10-5.20) 10*6/uL Hgb 13.8 (12.0-15.0) g/dL Hct 37.5 (37.2-46.3) % MCV 91.0 (80.0-97.0) fL MCH 33.5 H (27.0-32.0) pg MCHC 36.8 (32.0-37.0) g/dL Plt Count 255 (140-440) 10*3/uL MPV 9.3 L (9.5-12.2) fL Immature Gran % (Auto) 0.4 % Neutrophils % 67.1 % Lymphocytes % 24.4 % Monocytes % 7.2 % Eosinophils % 0.5 % Basophils % 0.4 % Immature Gran # 0.04 (0.00-0.04) 10*3/uL Neutrophils # 6.12 (1.80-7.70) 10*3/uL Lymphocytes # 2.23 (0.90-5.00) 10*3/uL Monocytes # 0.66 (0.20-1.00) 10*3/uL Eosinophils # 0.05 (0.04-0.35) 10*3/uL Basophils # 0.04 (0.00-0.10) 10*3/uL PT 11.1 (10.0-12.5) sec INR 1.0 (<1.2) APTT 22.7 (22.0-30.0) sec Sodium (137-145) mmol/L Potassium (3.5-5.1) mmol/L Chloride (98-107) mmol/L Carbon Dioxide (22-30) mmol/L Anion Gap mmol/L BUN (7-17) mg/dL Creatinine (0.52-1.04) mg/dL Est GFR (CKD-EPI)AfAm (>60 ml/min/1.73 sqM) Est GFR (CKD-EPI)NonAf (>60 ml/min/1.73 sqM) Glucose (74-99) mg/dL Calcium (8.4-10.2) mg/dL Total Bilirubin (0.2-1.3) mg/dL AST (14-36) U/L ALT (4-34) U/L Alkaline Phosphatase (38-126) U/L Troponin I (0.000-0.034) ng/mL Total Protein (6.3-8.2) g/dL Albumin (3.5-5.0) g/dL Urine Color Colorless Urine Appearance Clear (Clear) Urine pH 7.0 (5.0-8.0) Ur Specific [place] 1.005 (1.001-1.035) Urine Protein Negative (Negative) Urine Glucose (UA) Negative (Negative) Urine Ketones Negative (Negative) Urine Blood Negative (Negative) Urine Nitrite Negative (Negative) Urine Bilirubin Negative (Negative) Urine Urobilinogen <2.0 (<2.0) mg/dL Ur Leukocyte Esterase Negative (Negative) 03/14/25 03/14/25 Range/Units 18:33 18:33 WBC (4.50-10.00) 10*3/uL RBC (4.10-5.20) 10*6/uL Hgb (12.0-15.0) g/dL Hct (37.2-46.3) % MCV (80.0-97.0) fL MCH (27.0-32.0) pg MCHC (32.0-37.0) g/dL Plt Count (140-440) 10*3/uL MPV (9.5-12.2) fL Immature Gran % (Auto) % Neutrophils % % Lymphocytes % % Monocytes % % Eosinophils % % Basophils % % Immature Gran # (0.00-0.04) 10*3/uL Neutrophils # (1.80-7.70) 10*3/uL Lymphocytes # (0.90-5.00) 10*3/uL Monocytes # (0.20-1.00) 10*3/uL Eosinophils # (0.04-0.35) 10*3/uL Basophils # (0.00-0.10) 10*3/uL PT (10.0-12.5) sec INR (<1.2) APTT (22.0-30.0) sec Sodium 133 L (137-145) mmol/L Potassium 4.1 (3.5-5.1) mmol/L Chloride 97 L (98-107) mmol/L Carbon Dioxide 27 (22-30) mmol/L Anion Gap 9 mmol/L BUN 6 L (7-17) mg/dL Creatinine 0.62 (0.52-1.04) mg/dL Est GFR (CKD-EPI)AfAm >90 (>60 ml/min/1.73 sqM) Est GFR (CKD-EPI)NonAf >90 (>60 ml/min/1.73 sqM) Glucose 108 H (74-99) mg/dL Calcium 9.5 (8.4-10.2) mg/dL Total Bilirubin 0.6 (0.2-1.3) mg/dL AST 44 H (14-36) U/L ALT 34 (4-34) U/L Alkaline Phosphatase 79 (38-126) U/L Troponin I <0.012 (0.000-0.034) ng/mL Total Protein 6.6 (6.3-8.2) g/dL Albumin 4.5 (3.5-5.0) g/dL Urine Color Urine Appearance (Clear) Urine pH (5.0-8.0) Ur Specific [place] (1.001-1.035) Urine Protein (Negative) Urine Glucose (UA) (Negative) Urine Ketones (Negative) Urine Blood (Negative) Urine Nitrite (Negative) Urine Bilirubin (Negative) Urine Urobilinogen (<2.0) mg/dL Ur Leukocyte Esterase (Negative) Disposition Clinical Impression: Dizziness Disposition: HOME SELF-CARE Condition: Fair Instructions (If sedation given, give patient instructions): Dizziness (ED) Additional Instructions: Follow-up with PCP/neurology for ongoing evaluation and management of dizziness. Return to ER if experiencing worsening symptoms, nausea/vomiting, headache, numbness, weakness. Prescriptions: Meclizine [Antivert] 25 mg PO Q8H PRN #15 tab PRN Reason: Vertigo Is patient prescribed a controlled substance at d/c from ED?: No Referrals: Britney Smith MD [Primary Care Provider] - 1-2 days Sy Grant MD [STAFF PHYSICIAN] - 1-2 days Time of Disposition: 21:15
[2025-03-14] MEDS: SODIUM CHLORIDE 0.9% 1,000 ML IV STA (17:06)
[2025-03-14] MEDS: MECLIZINE 12.5 MG TAB PO STA (17:06)
[2025-03-14 17:10] LABS: Basophils # (A) 0.04 10*3/uL (0.00-0.10); Basophils % (A) 0.4 %; Eosinophils # (A) 0.05 10*3/uL (0.04-0.35); Eosinophils % (A) 0.5 %; HCT 37.5 % (37.2-46.3); HGB 13.8 g/dL (12.0-15.0); Lymphocytes # (A) 2.23 10*3/uL (0.90-5.00); Lymphocytes % (A) 24.4 %; MCH 33.5 pg (27.0-32.0); MCHC 36.8 g/dL (32.0-37.0); MCV 91.0 fL (80.0-97.0); Monocytes # (A) 0.66 10*3/uL (0.20-1.00); Monocytes % (A) 7.2 %; Neutrophils # (A) 6.12 10*3/uL (1.80-7.70); Neutrophils % (A) 67.1 %; Platelet Count 255 10*3/uL (140-440); RBC 4.12 10*6/uL (4.10-5.20); RDW 12.2 % (11.5-14.5); WBC 9.14 10*3/uL (4.50-10.00)
[2025-03-14 17:20] LABS: INR 1.0 (<1.2); Partial Thromboplastin Time 22.7 sec (22.0-30.0); Prothrombin Time 11.1 sec (10.0-12.5)
--- NOTE | 2025-03-14 17:26 | XR ---
EXAMINATION TYPE: XR chest 2V DATE OF EXAM: 03/14/2025 5:21 PM COMPARISON: None. CLINICAL INDICATION: Female, 69 years old with history of Dizziness: Shortness of breath TECHNIQUE: XR chest 2V views of the chest are obtained. FINDINGS: Scattered senescent parenchymal changes noted. Hyperinflation compatible with COPD. No evidence for infiltrate. No evidence for atelectasis. Heart size is stable. Mediastinal structures are stable and grossly unremarkable. No evidence for hilar prominence. Degenerative changes dorsal spine. IMPRESSION: 1. No evidence for acute pulmonary disease. [facility], , 03/14/2025 5:23 PM
[2025-03-14 18:20] LABS: Bilirubin,Urine Negative (Negative); Blood,Urine Negative (Negative); Color,Urine Colorless; Glucose,Urine (UA) Negative (Negative); Ketones,Urine Negative (Negative); Leukocyte Esterase,Urine Negative (Negative); Nitrite,Urine Negative (Negative); PH, Urine 7.0 (5.0-8.0); Protein,Urine Negative (Negative); Specific Gravity,Urine 1.005 (1.001-1.035); Urobilinogen,Urine <2.0 mg/dL (<2.0)
[2025-03-14 19:00] LABS: African American GFR (CKD) >90 (>60 ml/min/1.73 sqM); Anion Gap 9 mmol/L; Blood Urea Nitrogen 6 mg/dL (7-17); Carbon Dioxide 27 mmol/L (22-30); Chloride 97 mmol/L (98-107); Glucose 108 mg/dL (74-99); Potassium 4.1 mmol/L (3.5-5.1); Sodium 133 mmol/L (137-145)
[2025-03-14 19:01] LABS: ALT 34 U/L (4-34); AST 44 U/L (14-36); Albumin 4.5 g/dL (3.5-5.0); Alkaline Phosphatase 79 U/L (38-126); Calcium 9.5 mg/dL (8.4-10.2); Non-African American GFR(CKD) >90 (>60 ml/min/1.73 sqM); Total Protein 6.6 g/dL (6.3-8.2)
--- NOTE | 2025-03-14 19:58 | CT ---
EXAMINATION TYPE: CT brain wo con CT DLP: combined 1573.2 mGycm, Automated exposure control for dose reduction was used. DATE OF EXAM: 03/14/2025 7:54 PM COMPARISON: None. CLINICAL INDICATION:Female, 69 years old with history of Dizziness x 2 weeks, dizziness for two weeks TECHNIQUE: Brain: Multiple axial CT images of the brain were obtained without IV contrast. . Coronal and sagitta l reformats reviewed. FINDINGS: Brain: Extra-axial spaces: No abnormal extra-axial fluid collections. Ventricular system: Within normal limits Cerebral parenchyma: No acute intraparenchymal hemorrhage or mass effect. The espinosa-white junction is well differentiated. Cerebellum: Unremarkable. Mass effect: No evidence of midline shift. Intracranial vasculature: Atherosclerotic calcifications of the intracranial vessels. Soft tissues: Normal. Calvarium/osseous structures: No depressed skull fracture. Paranasal sinuses and mastoid air cells: Clear Visualized orbits: Orbital contents are intact. IMPRESSION: No acute intracranial process. [facility], , 03/14/2025 7:56 PM
--- NOTE | 2025-03-14 20:04 | CT ---
EXAMINATION TYPE: CT angio head neck CT DLP: combined 1573.2 mGycm, Automated exposure control for dose reduction was used. DATE OF EXAM: 03/14/2025 7:54 PM COMPARISON: CT brain of the same date. CLINICAL INDICATION:Female, 69 years old with history of Dizziness x 2 weeks; PHH, dizziness for two weeks TECHNIQUE: Axially acquired helical CT angiogram of the head and neck was obtained with contrast util izing 75 cc of Isovue-370 administered intravenously. Axial images are supplemented with 3D reconstru ctions which were post-processed at an independent workstation. NASCET criteria used. MIP imaging performed on a separate workstation and submitted for review. FINDINGS: CTA HEAD: No evidence of acute intracranial hemorrhage, mass effect, or midline shift. The ventricles, sulci, a nd cisterns are unremarkable. The visualized portions of the internal carotid arteries, middle cerebral arteries, anterior cerebral arteries, and posterior cerebral arteries are patent. The basilar and vertebral arteries are patent. CTA NECK: Right Carotid System: The common carotid artery and external carotid artery are patent. Mild atherosclerotic plaque at the carotid bifurcation with calcified and noncalcified plaque. Approximately 25% stenosis at the origin of the internal carotid artery secondary to noncalcified plaque. Retropharyngeal course of the right internal carotid artery. The remaining portions of the internal carotid artery demonstrate normal siz e without significant narrowing. Left Carotid System: The common carotid artery and external carotid artery are patent. Mild calcified plaque at the caroti d bifurcation. The carotid bifurcation demonstrates no evidence of hemodynamically significant stenos is. Retropharyngeal course of the left internal carotid artery. The remaining portions of the interna l carotid artery demonstrate normal size without significant narrowing. Vertebral arteries are patent without evidence hemodynamically significant stenosis. There is a three-vessel aortic arch. Mild atherosclerotic calcification of the aortic arch. The origi ns of the great vessels are patent. No evidence of hemodynamically significant stenosis. Multilevel degenerative disc disease of the cervical spine from C4 through C7. Grade 1 anterolisthesi s of C3 and C4. Multinodular thyroid gland with calcified nodules. IMPRESSION: 1. No evidence of dissection of the cervical internal carotid arteries or vertebral arteries or any e vidence of significant stenosis at the carotid bifurcations. 2. No evidence of high-grade stenosis or intracranial aneurysm. [facility], , 03/14/2025 8:01 PM
[2025-03-14 20:56] VITALS: BP 136/57; PULSE 84; RESP 20
== END 2025-03-14 21:45 | disposition home or self-care (01) ==
LOC: EC 16:02
DX: R42 Dizziness and giddiness (principal); F17.200 Nicotine dependence, unspecified, uncomplicated
CPT/HCPCS: 36415; 93005; 80053; 84484; 85025; 85610; 85730; 81003; 71046; 70496; 70450; 70498; 99284; 96360; 96361; Q9967

== ENCOUNTER → 2025-04-04 | Outpatient (CLI) | payer MEDICARE ==
--- NOTE | 2025-04-05 00:05 | MR ---
EXAMINATION TYPE: MR brain wo/w con DATE OF EXAM: 04/04/2025 9:52 AM COMPARISON: CT brain 03/14/2025 CLINICAL INDICATION: Female, 69 years old with history of R42 DIZZINESS AND GIDDINESS, Dizziness, [place] of balance TECHNIQUE: Multiplanar, multiecho imaging on a 3.0 Angelita magnet is performed through the brain. Stud y is performed within 24 hours of arrival to the hospital.Multiplanar, multiecho imaging on a 3.0 Lilian la magnet is performed through the knee. IV Contrast: 7.5 mL Gadobutrol (None, if empty) FINDINGS: The craniovertebral junction is normal. The pituitary is normal. Diffusion-weighted imaging is performed. No abnormal hyperintensity is present to suggest an acute i ntracranial infarct or acute ischemic change. Suspicious signal change is not evident. A few minimal punctate subcortical white matter changes may be present, not out of proportion to the patient's age. Ventricles and sulci are appropriate for the patient age. No abnormal enhancement is evident IMPRESSION: 1. Couple of scattered punctate white matter changes not out of proportion to the patient's age. 2. No suspicious abnormality account for patient's symptoms [facility], , 04/05/2025 12:03 AM
== END | disposition home or self-care (01) ==
LOC: RADMRIMAIN 09:01
PROVIDERS: ATTEND Internal Medicine
DX: R42 Dizziness and giddiness (principal)
CPT/HCPCS: 70553; A9585